=== PATIENT | female | born 1980 | race Caucasian/White ===

== ENCOUNTER 2018-10-23 14:39 | Emergency (ER) | payer BC, SELFPAY ==
[2018-10-23 14:40] VITALS: BP 116/86; PULSE 99; RESP 16; TEMP 36.9; O2SAT 100; BMI 22.8
--- NOTE | 2018-10-23 14:50 | NURSING ---
NO OLD EKGS
[2018-10-23 14:53] VITALS: BP 139/82; PULSE 84; RESP 15; O2SAT 100
--- NOTE | 2018-10-23 15:19 | EKG12_ITS ---
Test Reason : NEURO S/X Blood Pressure : / mmHG Vent. Rate : 079 BPM Atrial Rate : 079 BPM P-R Int : 128 ms QRS Dur : 076 ms QT Int : 372 ms P-R-T Axes : 058 006 012 degrees QTc Int : 426 ms Normal sinus rhythm Normal ECG Confirmed by IFEANYI AKINS MD ([id number]), newspaper editor managing TOMMY CABELLO ([id number]) on 10/26/2018 2:13:14 PM Referred By: TERESA Confirmed By:IFEANYI AKINS MD
--- NOTE | 2018-10-23 15:31 | NURSING ---
NO OLD EKGS
--- NOTE | 2018-10-23 15:40 | ED.VISSUMM ---
- ER Visit Summary Date of Service: 10/23/18 Chief Complaint: Vision changes History of Present Illness: The patient is a 38 F presenting for evaluation secondary to vision changes. Patient reports that she was walking around the store today, she had a sudden onset of vision changes in her right eye. She reports that it was associated with wavy lines around the periphery of her vision, this lasted about 20 minutes and then resolved. Patient reports that after that resolved she felt a feeling of heaviness in both of her legs, somewhat lightheaded, now she has some mild tingling in her left arm. She currently denies any headache. She denies any speech difficulty lateralizing weakness. Patient states that she is never really had any prior similar episodes except for one time when she was she had some changes in her vision. Patient does state that she gets frequent headaches about half of the days of the month that are associated with gradual onset throbbing type pain photophobia and nausea. She is never actually gotten this worked up. She denies any recent head injuries fevers. She is concerned because she was told that the heaviness in her legs could be from a heart attack. Physical Examination: Vital signs: Within normal limits General: Well-nourished well-developed no acute distress Head: Normocephalic atraumatic, no temporal artery tenderness or vesicular rash noted. No sinus tenderness to percussion. Eyes: PERRLA, EOMI. Direct funduscopy shows no evidence of hemorrhage or papilledema. Neck: Supple, no lymphadenopathy, no JVD no meningismus. Negative Brudzinski, Kernig, jolt, and heel strike Cardiovascular: Heart regular rate and rhythm no murmurs Respiratory: Lung sounds clear to auscultation bilaterally no respiratory distress Abdomen: Soft, nontender Extremities: Nontender, no edema Skin: Normal color, no rash, no evidence of petechia Neuro: Alert and oriented ?4, cranial nerves II through XII intact, normal strength, sensation Test Results: None indicated Emergency Department Course and Treatment: Patient presented secondary to a visual change. Patient's symptomatology, and her history of having previous multiple headaches in the past seems like the patient is having an atypical migraine at this point. An EKG was done reflexively by nursing staff which was normal and showed a sinus rate of [address] segments normal T waves. Patient does not have presentation at this point of stroke, venous sinus thrombosis, or other serious etiology that would require neuroimaging at this point. I believe the patient likely has been dealing with chronic migraines for quite some time by her history. She has primary care follow-up coming in November, I will start patient on a starting dose of Topamax. Patient is not and not planning to become . Patient will follow up with primary car Disposition: Discharge Impression: 1. Atypical migraine This note was generated with [employer] dictation software. It may contain incorrect words, spelling, and punctuation that were not noted in review of the chart prior to signing ED Disposition - Plan for ED Patient: Disposition: Home or Assisted Living Chief Complaint: Vision Prob Diagnosis: Atypical migraine Instructions: ED Headache Migraine Prescriptions: Topiramate [Topamax] 25 mg PO QHS #30 tab Additional Instructions: Followup with your PCP
[2018-10-23 15:45] VITALS: BP 130/81; PULSE 72; RESP 13; O2SAT 99
== END 2018-10-23 15:51 | disposition home or self-care (01) ==
PROVIDERS: Emergency Provider Emergency Medicine
DX: G43.909 Migraine, unspecified, not intractable, without status migrainosus (principal)
CPT/HCPCS: 93005; 99282

== ENCOUNTER → 2021-08-28 10:53 | Outpatient (CLI) | payer BC, SELFPAY ==
--- NOTE | 2021-08-28 11:14 | MRI_ITS ---
EXAM: MR HEAD WITHOUT AND WITH INTRAVENOUS CONTRAST, INTERNAL AUDITORY CANAL PROTOCOL CLINICAL INDICATION: DIZZINESS, ATTN IAC''S TECHNIQUE: Multiplanar and multisequence MR images of the internal auditory canal were obtained without and with intravenous contrast. This report was created using [employer] report [employer] technology. CONTRAST: IV 13mL Dotarem COMPARISON: None. FINDINGS: CRANIAL NERVES: Unremarkable. No mass. No abnormal enhancement. COCHLEA AND SEMICIRCULAR CANALS: Unremarkable. CEREBELLOPONTINE ANGLES: Unremarkable. No mass. BRAIN AND EXTRA-AXIAL SPACES: Unremarkable as visualized. No intra- or extra-axial hemorrhage. No intracranial mass or mass effect. There is preservation of the billings/white matter interface. Posterior fossa structures are unremarkable. Ventricles are appropriate for age. No hydrocephalus. Basal cisterns are patent. BONES/JOINTS: Unremarkable. No discrete lytic or blastic abnormalities. SINUSES: Unremarkable as visualized. Clear. MASTOID AIR CELLS: Unremarkable as visualized. Clear. ORBITS: Unremarkable as visualized. Both globes, extraocular muscles, optic nerves and retrobulbar fat appear unremarkable. MRI/Brain W/WO Contrast IMPRESSION: Unremarkable MRI of the internal auditory canal. Electronically Signed: Elvis Redmond MD at 18:59 EST , Service support ,
== END ==
PROVIDERS: PCP Internal Medicine; Referring Provider Otolaryngology; Visit Provider Otolaryngology
DX: R42 Dizziness and giddiness (principal)
CPT/HCPCS: 70553; A9575